=== PATIENT | male | born 1975 | race Caucasian/White ===

== ENCOUNTER 2018-03-28 13:49 | Emergency (ER) | payer OTHER ==
[~2018-03-28] VITALS: Ht 185.4 cm; Wt 75.0 kg
[2018-03-28] MEDS ORDERED: DIPHENHYDRAMINE 50 MG/ML, 1ML ONE (14:20)
[2018-03-28] MEDS ORDERED: METOCLOPRAMIDE 5 MG/ML, 2ML ONE (14:20)
[2018-03-28] MEDS ORDERED: SODIUM CHLORIDE FLUSH 10ML SYR IVF ONE (14:30)
[2018-03-28] MEDS ORDERED: METOCLOPRAMIDE 5 MG/ML, 2ML IVPush ONE (14:30)
[2018-03-28] MEDS ORDERED: DIPHENHYDRAMINE 50 MG/ML, 1ML IVPush ONE (14:30)
[2018-03-28] MEDS ORDERED: SODIUM CHLORIDE 0.9% 1,000ML IVBOLUS ONE (14:30)
[2018-03-28] MEDS ORDERED: MONT10TA9 PO (14:36)
[2018-03-28] MEDS ORDERED: ALBU2.5V NEB (14:36)
[2018-03-28] MEDS ORDERED: FENO54TA17 PO (14:36)
[2018-03-28] MEDS ORDERED: FLUT1AER INH (14:36)
[2018-03-28] MEDS ORDERED: LEVO50TA5 PO (14:36)
[2018-03-28 14:41] LABS: BASOPHILS # (AUTO) 0.04 x10^3/uL (0-0.1); BASOPHILS % (AUTO) 0 % (0-1); EOSINOPHILS # (AUTO) 0.32 x10^3/uL (0-0.4); EOSINOPHILS % (AUTO) 3 % (1-7); LYMPHOCYTES # (AUTO) 1.29 x10^3/uL (1-3.4); LYMPHOCYTES % (AUTO) 10 % (22-44); MD NO; MEAN CORPUSCULAR HEMOGLOBIN 30.6 pg (27.5-34.5); MEAN CORPUSCULAR HGB CONC 33.3 g/dL (33.2-36.2); MEAN CORPUSCULAR VOLUME 91.8 fL (81-97); MEAN PLATELET VOLUME 8.3 fL (7.4-10.4); MONOCYTES % (AUTO) 5 % (2-9); NEUTROPHILS # (AUTO) 10.47 x10^3/uL (1.8-6.8); NEUTROPHILS % (AUTO) 82 % (42-75); PLATELET COUNT 270 x10^3/uL (130-400); RED BLOOD COUNT 5.07 x10^6/uL (4.38-5.82); RED CELL DISTRIBUTION WIDTH 13.5 % (9.4-14.8)
[2018-03-28] MEDS ORDERED: OMNIPAQUE 350 MG/ML, 100ML BOTTLE ONE (15:37)
[2018-03-28 15:49] LABS: ANION GAP 11 mmol/L (5-15); CALCIUM 9.4 mg/dL (8.5-10.1); CHLORIDE 107 mmol/L (98-107); CREATININE 1.44 mg/dL (0.7-1.3)
[2018-03-28] MEDS ORDERED: KETOROLAC 30 MG/1 ML IVPush ONE (16:30)
[2018-03-28] MEDS ORDERED: KETOROLAC 30 MG/1 ML ONE (16:32)
[2018-03-28 17:14] VITALS: BP 118/77
== END 2018-03-28 17:16 | disposition home or self-care (01) ==
LOC: ED 16:50
DX: G44.52 New daily persistent headache (NDPH) (principal); R11.10 Vomiting, unspecified
CPT/HCPCS: 36415; 70450; 70496; 80048; 83880; 85025; 93005; 96361; 96374; 96375; 99284; J1200; J1885; J2765; J7030; Q9967